=== PATIENT | male | born 1995 | race African-American/Black ===

== ENCOUNTER 2023-09-24 13:26 | Emergency (ER) | payer OTHER ==
[2023-09-24 13:41] VITALS: O2SAT 100
--- NOTE | 2023-09-24 14:17 | ED Physician Documentation ---
History of Present Illness - Stated complaint Stated Complaint: LT ELBOW SWELLING - Chief complaint Chief Complaint: Wound - History obtained from History obtained from: Patient - Additonal information Additional information: Patient is a 27-year-old male presenting to the emergency department with left forearm swelling. Patient notes symptoms started around sometime last week while he was in [place] for a work trip. Patient notes 1 day he woke up and suspected he was bit by a spider as he noted to bite wounds to his left forearm. Since then redness swelling and erythema have developed at this site. He notes he has full range of motion to his left arm and no stiffness to his joints. He notes no fevers or chills associated with his symptoms. He is taking Tylenol and ibuprofen at home for pain control. Incidentally he notes he had similar episode of this when he went to [place] for work trip back in March as well. At that time he had significantly more swelling that is extending up to his arm and past his elbow. He notes he was given oral antibiotics for this as it spontaneously drained on its own. He notes this left arm has not drained on its own at this time. He has no history of diabetes he is not immunocompromise. He notes no other incidences of this other than when he is gone to [place] twice this year. PD PAST MEDICAL HISTORY - Past Medical History Past Medical History: No Cardiovascular: None Respiratory: None Neuro: None Endocrine/Autoimmune: None GI: None : None HEENT: None Psych: None Musculoskeletal: None Derm: None - Past Surgical History Past Surgical History: No - Present Medications Home Medications: Ambulatory Orders Medication Instructions Recorded Confirmed Sulfamethox/Trimeth 800/160 1 each PO BID #14 tablet 09/24/23 [Bactrim Ds 800/160] - Allergies Allergies/Adverse Reactions: Allergies Allergy/AdvReac Type Severity Reaction Status Date / Time No Known Drug Allergies Allergy Verified 09/24/23 13:30 - Social History Does the pt smoke?: No Smoking Status: Never smoker Does the pt drink ETOH?: No Does the pt have substance abuse?: No - Immunizations Immunizations are current?: Yes - POLST Patient has POLST: No PD ED PE NORMAL - Vitals Vital signs reviewed: Yes - General General: Alert and oriented X 3 - HEENT HEENT: Atraumatic - Neck Neck: Supple, no meningeal sign, C-Spine cleared by NEXUS criteria - Cardiac Cardiac: RRR, No murmur, No gallop, No rub - Respiratory Respiratory: No respiratory distress, Clear bilaterally - Derm Derm: Normal color, Other - Extremities Extremities: No deformity - Neuro Neuro: Alert and oriented X 3 Results - Vitals Vitals: Vital Signs - 24 hr 09/24/23 13:31 Temperature 36.3 C L Heart Rate 84 Respiratory 16 Rate Blood Pressure 152/88 H O2 Saturation 100 Oxygen O2 Source Room air Procedures - Abscess I&D (location) left arm incision Preparation: Confirmed with ultrasound, Lidocaine 1% Incision: Incised with scalpel, Purulent drainage Other: Pt tolerated well, Dressing applied, Antibiotic prescribed PD Medical Decision Making - ED course Complexity details: reviewed results, re-evaluated patient ED course: Patient is a 27-year-old male presents to the emergency department with left arm swelling. Patient notes left arm swelling started a few weeks ago after he woke up and suspected being bit by a spider. Since then he has increasing growth redness warmth to the area. He has full range of motion of his left arm. There is fluctuance around area of erythema with mild induration as well around this area approximately 3 cm in size. Bedside ultrasound was applied and abscess approximately 1 cm deep and 2 cm in depth noticed. Discussed with patient he is agreeable with incision and drainage here in the emergency department. Patient is denying any fevers or chills. He notes he has no stiffness to his joint. Area of erythema has not extended beyond his elbow and he has not noticed any streaking and no palpable lymphadenopathy in left shoulder. See procedure note above. Large amount of pus was removed and cultures were obtained. Patient updated on reassuring findings. Will update patient on culture results but will start patient on Bactrim given large amount of pus concern for possible MRSA. Patient will have wound wrapped and dressed here and will start on oral antibiotics. He was instructed to watch for fevers, chills worsening pain increased swelling stiffness to his joints difficulty moving his elbow or any other new or worsening symptoms. Patient will follow-up with his PCP in 2 to 3 days for reevaluation of wound. He is agreeable with this plan. Departure - Departure Disposition: 01 Home, Self Care Clinical Impression: Abscess of left forearm Condition: Poor Instructions: ED Staph Infec Abx Tx Only, ED Abscess IandD Comments: We are performing a wound culture, the results should be done in 48-72 hours. If antibiotic change is necessary we will call you. Return if worse in the meantime, especially if you develop increased pain, fevers, cannot keep down the medication. Otherwise follow-up with your physician in approximately 2-3 days. Follow-up keep wound clean dry you can let water run over it keep it wrapped to prevent persistent swelling. Forms: PCP List
[2023-09-24] MEDS: lidocaine 1% 20 ML MDV SUBQ ONE (14:25)
[2023-09-24 15:55] VITALS: BP 130/80
--- NOTE | 2023-09-28 18:32 | ED Physician Documentation ---
ED Addendum - Addendum Addendum: 09/28/23 18:31 The patient's elbow culture came back showing MRSA which was mostly expected. He had been prescribed Bactrim and unfortunately the current culture antibiotic gram is a resistant to Bactrim. Will have the nurses call and change him to Doxy for which it is sensitive. I will send the prescription to his preferred pharmacy.
== END 2023-09-24 15:47 | disposition home or self-care (01) ==
LOC: ED 13:26
DX: L02.414 Cutaneous abscess of left upper limb (principal)
CPT/HCPCS: 10060